=== PATIENT | female | born 1985 | race Caucasian/White ===

== ENCOUNTER 2017-11-23 09:32 | Emergency (ER) | payer SELFPAY ==
--- NOTE | 2017-11-23 10:13 | PC.NURSE ---
went to get patient, other patients states she left/ admit did not see pt leave
--- NOTE | 2017-12-03 05:37 | ED.EYEPROB ---
HPI - Eye Problem General Chief complaint: Eye Problems Stated complaint: 'PINK EYE' History of Present Illness HPI Narrative: Patient eloped prior to evaluation. Discharge Plan Departure Patient Disposition: Left Without Being Seen Discharge Date/Time: 11/23/17 10:12 Interventions: ED Discharge Assessment Last Done: 11/23/17 10:15
== END 2017-11-23 10:12 | disposition left against medical advice (07) ==
PROVIDERS: Emergency Provider Emergency Medicine
DX: H57.9 Unspecified disorder of eye and adnexa (principal)
CPT/HCPCS: 99281

== ENCOUNTER 2018-05-27 08:42 | Emergency (ER) | payer OTHER, MEDICAID, SELFPAY ==
--- NOTE | 2018-05-27 08:56 | DI.RAD.S_ITS ---
PROCEDURE: XR FOOT RT MIN 3V INDICATIONS: dropped metal 100lbs on foot TECHNIQUE: 3 views of the foot were acquired. COMPARISON: None. FINDINGS: Bones: No fractures or dislocations. No suspicious bony lesions. Well-defined plantar calcaneal enthesophyte is seen. Soft tissues: No tibiotalar joint effusion. Achilles tendon appears normal. IMPRESSION: No gross acute right foot fracture or dislocation. Dictated by: Artem Cano M.D. on 05/27/2018 at 9:35 Approved by: Artem Cano M.D. on 05/27/2018 at 9:36
[2018-05-27 09:00] VITALS: BP 143/85; PULSE 87; RESP 20; TEMP 36.5; O2SAT 100; BMI 35.4
--- NOTE | 2018-05-27 10:24 | ED.LOWEXIN ---
HPI - Extremity Injury (Lower) General Chief Complaint: Extremity Injury, Lower Stated Complaint: DROPPED A LARGE METAL ON RT FOOT Time Seen by Provider: 05/27/18 10:23 Source: patient Mode of arrival: ambulatory Limitations: no limitations History of Present Illness HPI Narrative: 32-year-old nonsmoking female presents with a chief complaint of right foot pain after dropping a heavy object on it while at work. She does wear steel reinforced boots which were dented. She does have some pain on the dorsum of her foot and a bit of increased pain with ambulation. She was asked to come in by her employer for evaluation as this is a work related injury. She denies any other injury and is otherwise well and free of complaint MD complaint: foot injury Onset (ago): hour(s) Type of Injury: blunt Place: work Severity: moderate Relieving factors: rest Exacerbating factors: weight bearing Context: direct blow Other symptoms: none Review of Systems Review of Systems All systems reviewed & are unremarkable except as noted in HPI and below Constitutional Denies chills, Denies fever(s), Denies lethargy and Denies weakness Eyes Denies change in vision, Denies eye discharge, Denies irritation and Denies loss of vision ENT Ears, Nose, Mouth, and Throat: Denies change in voice, Denies neck pain and Denies sore throat Cardiovascular Denies chest pain, Denies irregular heart rhythm, Denies lightheadedness, Denies palpitations, Denies dyspnea, Denies dyspnea on exertion and Denies orthopnea Respiratory Denies cough, Denies dyspnea, Denies dyspnea on exertion and Denies wheezing Gastrointestinal Gastrointestinal: Denies abdominal pain, Denies change in bowel habits, Denies diarrhea, Denies nausea and Denies vomiting Genitourinary Denies hematuria, Denies flank pain, Denies urinary incontinence and Denies urinary urgency Musculoskeletal Reports limited range of motion and Denies neck pain Integumentary/Breasts Denies pruritus, Denies erythema, Denies rash and Denies wounds Neurologic Denies confusion, Denies loss of vision and Denies weakness Psychiatric Denies anxiety, Denies confusion, Denies depression, Denies homicidal ideation and Denies suicidal ideation Endocrine Denies palpitations Hematologic/Lymphatic Denies easy bruising Allergic/Immunologic Denies wheezing PFSH Social History Smoking Status: Never smoker Exam Narrative Exam Narrative: GEN: Pleasant 32-year-old female in no obvious distress EYES: Pupils are equal, round, and reactive to light and accommodation. Extraoccular muscles are intact bilaterally. There is no subconjunctival hemorrhage or exudate. CHEST: Lungs are clear to auscultation bilaterally and free of wheezes, rales, or rhonchi. Heart rate is regular rhythm, there are no murmurs, clicks, rubs, or gallops. There is no chest wall tenderness. ABD: Abdomen is soft and nontender. There is no guarding or rebound. Bowel sounds are normal in all 4 quadrants. There is no mass or organomegaly. EXT: No obvious external manifestation of injury. No abrasion or laceration nor discoloration, swelling or other. No numbness, tingling. Cap refill less than 2 sec. SKIN: Warm, pink, and dry. No erythema or rash Initial Vital Signs Initial Vital Signs: Vital Signs Temperature 97.7 F 05/27/18 09:00 Pulse Rate 87 05/27/18 09:00 Respiratory Rate 20 05/27/18 09:00 Blood Pressure 143/85 H 05/27/18 09:00 Pulse Oximetry 100 05/27/18 09:00 Course Orders Ordered: ED Orders 05/27/18 08:56 XR foot RT min 3V Stat Vital Signs - 8 hr 05/27/18 09:00 Temperature 97.7 F Pulse Rate 87 Respiratory Rate 20 Blood Pressure 143/85 H Pulse Oximetry 100 MDM - Extremity Injury (Lower) Imaging Data Foot Xray: Attestation: I personally reviewed and interpreted this imaging study as follows: Radiologist's impression: [address] [address] XRay Report Signed Patient: Saundra Garrido LMR#: [id number] : 1985Acct:[id number] Age/Sex: 32 / FDate of Service: 05/27/18 Loc: ED Accession Number: [id number] Procedure: XR foot RT min 3V Ordering Provider: Shay Alvares D.O. PROCEDURE: XR FOOT RT MIN 3V INDICATIONS: dropped metal 100lbs on foot TECHNIQUE: 3 views of the foot were acquired. COMPARISON: None. FINDINGS: Bones: No fractures or dislocations. No suspicious bony lesions. Well-defined plantar calcaneal enthesophyte is seen. Soft tissues: No tibiotalar joint effusion. Achilles tendon appears normal. IMPRESSION: No gross acute right foot fracture or dislocation. Dictated by: Artem Cano M.D. on 05/27/2018 at 9:35 Approved by: Artem Cano M.D. on 05/27/2018 at 9:36 Discharge Plan Departure Patient Disposition: Home Clinical Impression: Contusion of right foot Discharge Date/Time: 05/27/18 10:47 Interventions: ED Discharge Assessment Last Done: 05/27/18 10:46 Instructions: DI for Contusion Activity Restrictions/Additional Instructions: *You have been diagnosed with [ acute right foot contusion ] *What to do: *Take medications as directed: Motrin or tylenol for pain *Follow up with your primary care provider in 2-3 days, call for an appointment. Let them know you were seen in the Emergency Department and that we ask that you be seen in follow up *Return to ER if you should have any new, worsening or concerning symptoms
== END 2018-05-27 10:47 | disposition home or self-care (01) ==
PROVIDERS: Emergency Provider Emergency Medicine
DX: S90.31XA Contusion of right foot, initial encounter (principal); W23.0XXA Caught, crushed, jammed, or pinched between moving objects, initial encounter
CPT/HCPCS: 73630; 99282; 99283